=== PATIENT | female | born 1985 | race Two or more races ===

== ENCOUNTER → 2019-05-05 | Outpatient (CLI) | payer OTHER | END | disposition home or self-care (01) | LOC: PRENATAL 05-04 08:00 | DX: O99.210 Obesity complicating pregnancy, unspecified trimester (principal); O35.3XX0 Maternal care for (suspected) damage to fetus from viral disease in mother, not applicable or unspecified; Z3A.20 20 weeks gestation of pregnancy ==

== ENCOUNTER → 2019-07-27 | Outpatient (CLI) | payer OTHER | END | disposition home or self-care (01) | LOC: PRENATAL 10:37 | DX: O26.843 Uterine size-date discrepancy, third trimester (principal); O99.213 Obesity complicating pregnancy, third trimester; O36.8131 Decreased fetal movements, third trimester, fetus 1 ==

== ENCOUNTER 2019-09-13 14:00 | Inpatient (IN) | payer OTHER ==
[~2019-09-13] VITALS: Ht 170.2 cm; Wt 127.0 kg
[2019-09-19] MEDS ORDERED: PRENATAL TABLE1 EAC1 PO (08:29)
[2019-09-19] MEDS ORDERED: PEPCID AC20 MG PO (08:30)
== END 2019-09-21 13:15 | disposition home or self-care (01) | DRG 807 ==
LOC: OB/GYN 09-19 07:18 → LDR 09-19 07:18 → OB/GYN 09-19 14:00
PROVIDERS: ADMIT Obstetrics & Gynecology; ATTEND Obstetrics & Gynecology
PROC: 10E0XZZ Delivery of Products of Conception, External Approach (ICD-10-PCS; principal; 2019-09-19)
PROC: 4A1HXCZ Monitoring of Products of Conception, Cardiac Rate, External Approach (ICD-10-PCS; 2019-09-19)
DX: O80 Encounter for full-term uncomplicated delivery (principal); Z37.0 Single live birth; Z3A.40 40 weeks gestation of pregnancy